=== PATIENT | female | born 1985 | race Caucasian/White ===

== ENCOUNTER → 2019-01-12 11:13 | Outpatient (CLI) | payer MEDICAID, SELFPAY ==
--- NOTE | 2019-01-12 11:19 | XR_ITS ---
PROCEDURE: XR MULTIPLE SPINE 4-5V CLINICAL INDICATION: THORACIC SPINE PAIN COMPARISON: No exams were available for comparison FINDINGS: AP and lateral and swimmer's view of the thoracic spine show all thoracic vertebrae to be intact. All pedicles are intact. There is no paraspinal mass. There is normal curvature and alignment of the lumbar spine. All lumbar vertebrae appear intact. There is no pars defect. Disc spaces are well maintained throughout. The SI joints are normal. IMPRESSION: Grossly negative thoracic and lumbar spine Dictated by: Dr. Bobo Avalos MD 01/12/2019 11:[address] Bobo Avalos MD in [place] 01/12/2019 11:53
== END ==
PROVIDERS: PCP Nurse Practitioner; Visit Provider Nurse Practitioner
DX: M54.6 Pain in thoracic spine (principal)
CPT/HCPCS: 72083

== ENCOUNTER → 2020-06-27 15:37 | Outpatient (CLI) | payer MEDICAID, SELFPAY ==
[2020-07-01 02:16] LABS: Neisseria gonorrhoeae, NAA Negative (Negative)
== END ==
PROVIDERS: Visit Provider Obstetrics & Gynecology
DX: N89.8 Other specified noninflammatory disorders of vagina (principal); N76.0 Acute vaginitis; B96.89 Other specified bacterial agents as the cause of diseases classified elsewhere
CPT/HCPCS: 87491; 87591

== ENCOUNTER 2020-11-30 17:21 | Emergency (ER) | payer MEDICAID, SELFPAY ==
[2020-11-30 19:59] VITALS: BP 137/82; PULSE 86; RESP 14; TEMP 36.9; O2SAT 97; BMI 39.6
[2020-11-30 20:20] LABS: Apearance,Urine Turbid (Clear); Glucose,Urine (UA) 1+ (Negative); PH,Urine 5.5 (5.0-8.5); Protein,Urine Trace (Negative); Specific Gravity, Urine > 1.030 (1.005-1.030)
--- NOTE | 2020-11-30 20:20 | HMH.EDUTC ---
[facility] [place] Clinical Impression: Bacterial vaginitis, Vaginal candidiasis UTI (urinary tract infection) Qualifiers: Urinary tract infection type: acute cystitis Hematuria presence: with hematuria Qualified Code(s): N30.01 - Acute cystitis with hematuria Disposition: Home, Self-Care Condition on Discharge: Good Instructions: DI for Urinary Tract Infection (UTI) Additional Instructions: Follow up with Lala Tuesday to get urine culture and STD results Prescriptions: Ciprofloxacin HCl [Cipro 500mg Tab] 500 mg PO BID 5 Days #10 tab Transmission Status: Pending to [facility] Fluconazole [Diflucan 150mg tab] 150 mg PO DAILY 3 Days #3 tab Transmission Status: Pending to [facility] metroNIDAZOLE [Flagyl 500mg Tablet] 500 mg PO TID 10 Days #30 tab Transmission Status: Pending to [facility] Referrals: Mary Richardson APRN [Primary Care Provider] - Time of Disposition: 21:06 Medical Decision Making - Salvador Inquiry Pt receiving controlled substance: No Vital Signs: 11/30/20 19:59 Temperature 98.5 F Temperature Source Oral Pulse Rate [Left] 86 Respiratory Rate 14 Blood Pressure [Right Arm] 137/82 Blood Pressure Mean [Right Arm] 100 02 Sat by Pulse Oximetry 97 - Lab Data Lab results reviewed: Yes: I reviewed the patient's lab results. Lab Results 11/30/20 20:04: Urine Appearance Turbid, Urine pH 5.5, Ur Specific [place] > 1.030 H, Urine Protein Trace, Urine Glucose (UA) 1+, Urine Ketones Negative, Urine Blood 1+, Urine Nitrate Negative, Urine Bilirubin Negative, Urine Urobilinogen 0.2, Ur Leukocyte Esterase 3+ A Orders (Tests/Meds): ORDERS Category Date Time Status Urine Culture Stat Micro 11/30/20 20:15 [place] [facility] [place] - General Stated complaint: possible UTI Time Seen by Provider: 11/30/20 20:20 Mode of Arrival: Ambulatory Source of Information: Patient Limitations: No Limitations Description of Symptoms (Recalled from Triage Doc. by RN): pt states her vagina is inflammed . pt had unprotected sex last week with a new partner. pt is having itching and pain in her vagina. she is unsure if it could be a uti or sti. pt c/o nausea, DIA, and back ache. HEENT Symptoms (Recalled from RN notes): Yes (DIA) Resp Symptoms (Recalled from RN notes): No Skin Symptoms (Recalled from RN notes): No MS Symptoms (Recalled from RN notes): Yes (back ache) Functional Status (Recalled from RN notes): na - History of Present Illness Provider Complaint: Patient has pelvic pain, back pain, headache, nausea. No fever. She states her vagina is itchy, swollen and painful. No discharge. No odor. She had unprotected sexual intercourse last week and also changed her detergent. Onset (ago): day(s) (2) Location: genitals Radiation: back Quality: burning Consistency: constant Relieving factors: none Exacerbating factors: none Associated symptoms: denies other symptoms Treatments prior to arrival: none - Related Data Home Medications Medication Instructions Recorded Confirmed atorvastatin 40 mg tablet 40 mg PO DAILY tab 01/08/20 blood sugar diagnostic See Rx Instructions .ROUTE 01/08/20 .MEDSUPPLY #10 each esomeprazole magnesium 20 mg mg PO 01/08/20 tablet,delayed release glimepiride 4 mg tablet 4 mg PO BID tab 01/08/20 insulin glargine 100 unit/mL (3 unit SQ 01/08/20 mL) subcutaneous pen metformin 1,000 mg tablet 500 mg PO BID tab 01/08/20 sumatriptan succinate 100 mg tablet mg PO 01/08/20 etonogestrel 68 mg subdermal SUBDERMAL 06/27/20 implant sertraline 100 mg tablet 100 mg PO DAILY 06/27/20 Previous Rx's Medication Instructions Recorded metronidazole 500 mg tablet 500 mg PO BID 5 Days #10 tab 06/27/20 Ciprofloxacin HCl [Cipro 500mg 500 mg PO BID 5 Days #10 tab 11/30/20 Tab] Fluconazole [Diflucan 150mg tab] 150 mg PO DAILY 3 Days #3 tab 11/30/20 metroNIDAZOLE [Flagyl 500mg 500 mg PO TID 10 Days #30 tab 0
[2020-11-30 20:21] LABS: Bilirubin,Urine Negative (Negative); Blood, Urine 1+ (Negative); Ketones,Urine Negative (Negative); UTC Leukocyte Esterase,Urine 3+ (Negative); UTC Nitrate,Urine Negative (Negative); Urobilinogen,Urine 0.2 EU/dl (0.2)
[2020-11-30 21:11] VITALS: BP 137/82; PULSE 86; RESP 16; TEMP 36.6
[2020-12-02 21:30] LABS: Neisseria gonorrhoeae, NAA Negative (Negative)
== END 2020-11-30 21:17 | disposition home or self-care (01) ==
PROVIDERS: Emergency Provider Physician Assistant; PCP Nurse Practitioner
DX: N30.01 Acute cystitis with hematuria (principal); N76.0 Acute vaginitis; B37.3 Candidiasis of vulva and vagina
CPT/HCPCS: 81003; 87086; 87186; 87210; 87491; 87591; 99203; G0463

== ENCOUNTER → 2020-12-26 17:05 | Outpatient (CLI) | payer MEDICAID, SELFPAY | PROVIDERS: PCP Nurse Practitioner; Visit Provider Nurse Practitioner | DX: Z20.822 Contact with and (suspected) exposure to COVID-19 (principal) | CPT/HCPCS: C9803; U0003; U0005 ==

== ENCOUNTER → 2022-08-09 10:43 | Outpatient (CLI) | payer MEDICAID, SELFPAY ==
[2022-08-10 12:07] LABS: HIV Screen 4th Generation wRfx Non Reactive (Non Reactive)
[2022-08-10 12:12] LABS: Rapid Plasma Reagin Ab Titer Non Reactive (NonRea<1:1)
[2022-08-10 14:23] LABS: HBsAg Screen Negative (Negative); Hep A Ab, IGM Negative (Negative); Hep B Core Ab, IgM Indeterminate (Negative)
== END ==
PROVIDERS: PCP Nurse Practitioner Family; Visit Provider Obstetrics & Gynecology
DX: Z11.3 Encounter for screening for infections with a predominantly sexual mode of transmission (principal); Z11.4 Encounter for screening for human immunodeficiency virus [HIV]
CPT/HCPCS: 36415; 80074; 86593; 86703; G0432

== ENCOUNTER 2025-01-23 12:52 | Emergency (ER) | payer MEDICAID, SELFPAY ==
[2025-01-23 12:55] VITALS: BP 126/71; PULSE 111; RESP 18; TEMP 36.9; O2SAT 100; BMI 27.3
--- NOTE | 2025-01-23 13:12 | CT_ITS ---
FINAL REPORT TECHNIQUE: IV contrast enhanced exam This study was performed with techniques to keep radiation doses as low as reasonably achievable, (ALARA). Individualized dose reduction techniques using automated exposure control or adjustment of mA and/or kV according to the patient''s size were employed. CLINICAL HISTORY: Abdominal pain, nausea COMPARISON: None FINDINGS: Abdomen: No acute density is seen within the lung bases. There is hepatosplenomegaly with the spleen measuring up to 17.8 cm. The gallbladder is unremarkable. The remaining solid abdominal organs are unremarkable. No bowel obstruction is present. There is no free air. No fluid collection is seen. There is mild nonspecific central mesenteric adenopathy. There is an excessive number of small lymph nodes measuring up to 7 mm. Mild adenopathy in the left para-aortic retroperitoneum measuring up to 11 mm. Pelvis: The appendix is normal. No bowel wall thickening is present. The uterus and ovaries are unremarkable. The urinary bladder is mildly distended. There is no free fluid. No pelvic mass is seen. IMPRESSION: No bowel obstruction or acute findings. Splenomegaly with mild mesenteric adenopathy. Lymphoproliferative disorder is not excluded. Consider CT follow-up in 2-3 months. Reviewed, Interpreted and Dictated by Luciana Berman MD Transcribed by Karie Lugo Authenticated and [facility]
--- NOTE | 2025-01-23 13:15 | ED_ITS ---
<Statement entered by Garret Alston MD - 01/23/25 17:46> I was consulted by the YAHAIRA, and we discussed the complexity of the problems being addressed. I approve the treatment and management plan for this patient's care in the emergency department, thus performing a substantive portion of the medical decision making. Garret Alston MD Discharge Plan Disposition Patient Disposition: Home, Self-Care Condition: Good Prescriptions Prescriptions: New ondansetron 4 mg tablet,disintegrating 4 mg PO Q6H PRN (Reason: nausea and vomiting) Qty: 10 0RF No Action Nexplanon 68 mg implant SUBDERMAL nystatin 100,000 unit/gram powder 1 applic topical TID Qty: 30 0RF metronidazole 500 mg tablet 2,000 mg PO ONCE Qty: 4 0RF azithromycin 500 mg tablet 500 mg PO ONCE 7 Days Qty: 7 0RF metronidazole 500 mg tablet 500 mg PO BID 5 Days Qty: 10 0RF Referrals Follow up/Referrals: Delmis Moran APRN [Primary Care Provider, Medical] - See instructions Chapincito Noonan II, MD [Staff Physician, Gastroenterology] - See instructions Activity Restrictions/Add. Instructions Additional Instructions/Restrictions: Please return to the emergency department with any worsening signs or symptoms. Please use your antinausea medicine as needed. Please follow-up with your PCP and GI doctor in the upcoming weeks. Could consider getting repeat CT scan of your abdomen in 2 to 3 months. Clinical Impressions Clinical Impression: Abdominal pain Instructions Patient Instructions: DI for Acute Abdominal Pain, DI for Mesenteric Adenitis in Adults Print Language Print Language: Urdu Discharge ED Provider: Garret Alston General Adult HPI General Chief complaint: Abdominal Pain Stated complaint: GI issues-abnormal xray Time Seen by Provider: 01/23/25 13:04 Mode of Arrival: Ambulatory Source of Information: Patient Description of Symptoms (Recalled from ER Triage Doc. by RN): Pt was sent for evaluation by PCP for concern of a bowel obstruction. Last BM was 2 hours ago but patient reports it was a liquid movement. Pt states she has abdominal pain that she has had since tuesday. Pt reports she is no longer passing gas. History of Present Illness HPI narrative: 39-year-old female presents emergency department at the request of her PCP, for concerns of a bowel obstruction , patient states that she went to her PCPs office today for routine follow-up, discussed that she had been having abdominal pain for the last 4 days, as well as some nausea, she had what sounds like abdominal x-rays performed which showed concern for bowel obstruction and was instructed to come to the emergency department for further evaluation. Patient denies any vomiting, denies any fever chills chest pain shortness of breath, last bowel movement was 2 hours ago, patient denies any hematuria melena hematochezia or hematemesis, no urinary type symptomatology, patient is a current everyday smoker (vapes), denies any alcohol use, admits to occasional marijuana use, other past medical history is consistent with T2DM, GERD, IBS, hyperlipidemia, JIGNA/MDD, bipolar disorder, gastroparesis. Initial triage vitals noted for tachycardia otherwise unremarkable. Please note that above description of symptoms, in this electronic medical record under categorization of recalled from ER triage doctor by RN are reflective of an initial nursing assessment, however, is not reflective of my full history and physical exam that was personally taken and clarified. Consequentially, this preceding description of symptoms, which may include the patient's categorized chief complaint in the EMR, do not reflect my personal clinical impression, and the ultimate description of history of present illness and patient stated complaints should be deferred to this section of the note. Unless stated otherwise or congruent with this section of the note, additional signs, symptoms, or incongruence should be interpreted as inaccurate with my clinical impression. Onset (ago): day(s) Related Data Home Medications ?Medication ?Instructions ?Recorded ?Confirmed etonogestrel 68 mg subdermal subdermal 06/27/20 implant (Nexplanon) Previous Rx's ?Medication ?Instructions ?Recorded azithromycin 500 mg tablet 500 mg PO ONCE 7 days #7 ta bs 08/09/22 metronidazole 500 mg tablet 2,000 mg (4 x 500 mg) PO O NCE #4 08/09/22 tabs nystatin 100,000 unit/gram topical 1 applic topical TI D #30 grams 08/09/22 powder metronidazole 500 mg tablet 500 mg PO BID 5 days #10 t abs 08/16/22 ondansetron 4 mg disintegrating 4 mg PO Q6H PRN nausea and 01/23/25 tablet vomiting #10 tabs Allergies Allergy/AdvReac Type Severity Reaction Status Date / Time latex (LATEX) Allergy Mild Verified 08/09/22 09:57 povidone-iodine (From Allergy Mild rash Verified 08/09/22 09:57 Betadine) soap (From Betadine) Allergy Mild rash Verified 08/09/22 09:57 lamotrigine (From LAMICTAL) Allergy Unknown Verified 08/09/22 09:57 [facility] Disclaimer: The information contained in this section may have been updated after the patient was seen, as this information can be updated by other users. Medical History Presence of subdermal contraceptive implant Surgical History (Updated 08/09/22 @ 10:02 by HELEN Jacinto) History of placement of ear tubes History of tonsillectomy and adenoidectomy Hx of removal of cyst History of ankle surgery History of salpingectomy Family History (Updated 08/09/22 @ 10:02 by HELEN Jacnito) Other Cancer FHx: mental illness Social History (Updated 08/09/22 @ 10:02 by HELEN Jacinto) Smoking Status: Current every day smoker tobacco type: cigarettes alcohol intake: never substance use type: marijuana current occupational status: employed Travel in the last 8 weeks?: None Have you lived/traveled outside US in past 30 days?: No Contact w/someone who lives/traveled outside US past 30 days?: No Exposure to someone with infectious disease in past 14 days?: No Do you have a fever (greater than 100.4 F or 38 C)?: No Have you tested positive for COVID-19?: No Exposed to someone with COVID-19 in past 14 days?: No Do you have a sore throat?: No Do you have a cough?: No Do you have any weakness?: No Do you have any diarrhea?: No Are you experiencing any unusual bleeding?: No Do you have any muscle aches/pain?: No Do you have any abdominal pain?: No Are you experiencing loss of taste or smell?: No Other Medical History Have you received the Pneumonia Vaccine: No ROS Obtained: Yes All systems reviewed & no additional complaints except as documented Physical Exam General General appearance: alert and in no apparent distress Head Head exam: atraumatic and normocephalic Eye Eye exam: Present PERRL and EOMI ENT ENT exam: Present mucous membranes moist Neck Neck exam: Present normal inspection Chest Chest inspection: Present normal inspection and symmetric chest wall rise Respiratory Respiratory exam: Present normal lung sounds bilaterally; Absent respiratory distress Cardiovascular Cardiovascular exam: Present normal rhythm and tachycardia Abdominal Exam Abdominal exam: Present soft; Absent tenderness, guarding, rebound or rigidity Extremities Exam Extremities exam: Present normal inspection Neurological Exam Neurological exam: Present alert and oriented X3 Psychiatric Psychiatric exam: Present normal affect Skin Skin exam: Present warm and dry Medical Decision Making Medical Records Medical records reviewed: Yes I reviewed the patient's medical records. Screening: Per USPSTF and CDC recommendations, given the prevalence of disease in our region, it is our hospital?s policy to screen for HIV and viral Hepatitis for all patients aged 18 and over and those with ongoing risk factors. [place] Inquiry Pt receiving controlled substance: Yes Salvador was queried for this patient: No Reason not queried -: Emergent pt cond-no time Risks and benefits of using a controlled substance: were discussed with pt by me Vital Signs: 01/23/25 12:55 01/23/25 14:00 01/23/25 14:30 Temperature 98.5 F Temperature Source Oral Pulse Rate 98 H 90 Pulse Rate [Right] 111 H Respiratory Rate 18 Blood Pressure 102/76 L 103/61 L Blood Pressure [Right Arm] 126/71 Blood Pressure Mean [Right Arm] 89 Blood Pressure Source [Right Arm] Automatic Cuff Blood Pressure Position [Right Arm] Sitting 02 Sat by Pulse Oximetry 100 96 97 Oxygen Delivery Method Room Air Room Air 01/23/25 15:00 Temperature Temperature Source Pulse Rate 91 H Pulse Rate [Right] Respiratory Rate Blood Pressure 106/58 L Blood Pressure [Right Arm] Blood Pressure Mean [Right Arm] Blood Pressure Source [Right Arm] Blood Pressure Position [Right Arm] 02 Sat by Pulse Oximetry 95 Oxygen Delivery Method Room Air Lab Data Lab results reviewed: Yes I reviewed the patient's lab results. Lab Results 01/23/25 13:38: WBC 12.4 H, RBC 5.12, Hgb 14.7, Hct 42.7, MCV 83.4, MCH 28.7, MCHC 34.4, RDW 13.6, Plt Count 288, MPV 9.7, Neut % (Auto) 63.4, Lymph % (Auto) 29.5, [place] % (Auto) 5.3, Eos % (Auto) 0.9, Baso % (Auto) 0.6, Neut # (Auto) 7.9 H, Lymph # (Auto) 3.7, [place] # (Auto) 0.7, Eos # (Auto) 0.1, Baso # (Auto) 0.1, Sodium 138, Potassium 4.8, Chloride 101, Carbon Dioxide 24, Anion Gap 17.8 H, BUN 17, Creatinine 0.40 L, Estimated Creat Clear 204, Estimated GFR 176, Est GFR ( Amer) 213, Glucose 134 H, Lactate 1.2, Calcium 9.5, Total Bilirubin 1.0, AST 52 H, ALT 25, Alkaline Phosphatase 72, Total Protein 7.7, Albumin 4.7, Globulin 3.0, Albumin/Globulin Ratio 1.6, Lipase 114, Serum HCG, Qual Negative 01/23/25 15:03: Urine Color Yellow, Urine Appearance Sl cloudy, Urine pH 5.5, Ur Specific [place] 1.010, Urine Protein Negative, Urine Glucose (UA) 3+, Urine Ketones Trace, Urine Blood Negative, Urine Nitrate Negative, Urine Bilirubin Negative, Urine Urobilinogen 0.2, Ur Leukocyte Esterase Negative, Urine RBC Occasional, Urine WBC Occasional, Ur Squamous Epith Cells 3-5, Urine Bacteria Trace 01/23/25 13:38 01/23/25 13:38 Orders (Tests/Meds): ED MEDICATIONS Discontinued Medications Generic Name Dose Route Start Last Admin Trade Name Freq PRN Reason Stop Dose Admin Iopamidol 75 ml 01/23/25 14:30 01/23/25 14:32 Iopamidol-370 (76%);100ml Bottle IV 01/23/25 14:31 75 ml ONCE ONE Administration Morphine Sulfate 2 mg 01/23/25 13:14 01/23/25 13:34 Morphine 2mg/Ml Syringe IV 01/23/25 13:15 2 mg ONCE ONE Administration Ondansetron HCl 4 mg 01/23/25 13:13 01/23/25 13:34 Ondansetron 4mg/2ml Vial IV 01/23/25 13:14 4 mg ONCE ONE Administration Sodium Chloride 10 ml 01/23/25 14:30 01/23/25 14:32 Sodium Chloride 0.9% 10ml Syr (Rad Only) IV 01/23/25 14:31 10 ml ONCE ONE Administration ORDERS Category Date Time Status CT abdomen pelvis w con Stat Cat Scan 01/23/25 13:12 Completed Complete Blood Count Auto Diff Stat Lab 01/23/25 13:38 Completed Comprehensive Metabolic Panel Stat Lab 01/23/25 13:38 Completed HCG Qualitative, Serum Stat Lab 01/23/25 13:38 Completed Lactic Acid Stat Lab 01/23/25 13:38 Completed Lipase Stat Lab 01/23/25 13:38 Completed Urinalysis and Microscopic Stat Lab 01/23/25 15:03 Completed Medical Decision Narrative: 39-year-old female presents the emergency department at the request of PCP for abdominal pain nausea for the last 4 days, is concern for bowel obstruction on abdominal x-rays performed as outpatient, differential diagnose include but not limited to, constipation, bowel obstruction, ileus, pseudo colonic obstruction, colitis, ileitis, gastroenteritis among others I discussed this patient's case with the attending physician Dr. Alston Will obtain basic laboratory studies, lactic acid lipase UA, hCG serum qualitative, CT pelvis with contrast, give 2 mg IM morphine for pain and 4 mg IV Zofran for nausea. CBC noted for mild leukocytosis 12.4 otherwise unremarkable CMP is notable for minimal AST elevation at 52 otherwise unremarkable. hCG serum qualitative negative Urinalysis is unremarkable with the exception of 3+ glucose urea patient has known T2DM. I reviewed the patient's CT and pelvis with contrast along the corresponding radiologic report, no bowel obstruction or acute findings, splenomegaly with mild mesenteric adenopathy, lymphoproliferative disorder is not excluded, consider CT follow-up in 2 to 3 months. I discussed the results with the patient the bedside patient voiced understanding and agreement with the current treatment plan/discharge plan. Will prescribe the 4 mg p.o. sublingual Zofran as needed for symptomatic relief. Patient was given strict ED return precautions, recommend follow-up with GI doctor and PCP in the upcoming days/weeks, recommend follow-up CT scan in the next 2 to 3 months. Patient once again voiced understanding Critical Care Critical Care Time Critical Care Time: No
[2025-01-23] MEDS: MORPHINE 2MG/ML SYRINGE 2 MG IV (13:34)
[2025-01-23] MEDS: ONDANSETRON 4MG/2ML VIAL 4 MG IV (13:34)
[2025-01-23 13:47] LABS: Hematocrit 42.7 % (37.0-47.0); Hemoglobin 14.7 g/dL (12.2-16.2); Immature Granulocytes % 0.3 %; Mean Corpuscular HGB Conc 34.4 g/dL (31.8-35.4); Mean Corpuscular Hemoglobin 28.7 pg (27.0-31.2); Mean Corpuscular Volume 83.4 fl (81-99); Nucleated Red Blood Cells % 0 %; Platelet Count 288 K/mm3 (142-424); Red Blood Count 5.12 M/mm3 (4.20-5.40); Red Cell Distribution Width-SD 41.6 fL; White Blood Count 12.4 K/mm3 (4.8-10.8)
--- OUTSIDE RECORDS SUMMARY | 2025-01-23 13:56 | XMS_ITS | Clinical Summary ---
Author Organization [facility] Address [address] [place] [address] Care Team Providers Care Director Data Analytics Name Role Phone DeanDelmis Romi GALE Primary Care Provider [phone] Allergies Active Allergy Reactions Criticality Noted Date Comments Lamotrigine Rash Low 09/17/2015 Latex 09/17/2015 Has not had testing. Medications Vit w/Fe-Methylfol- FA (PNV PO) Take by mouth daily. Active ranitidine (ZANTAC) 150 MG tablet Take 150 mg by mouth daily. Active sertraline (ZOLOFT) 50 MG tablet Take 50 mg by mouth daily. Active busPIRone (BUSPAR) 15 MG tablet Take 15 mg by mouth 2 (two) times a day. Active insulin glargine (LANTUS) 100 UNIT/ML injection Inject 26 Units under the skin every night. Active glucose blood test strip Use as instructed 200 each 1 6 Active Lancets (ACCU-CHEK SOFT TOUCH) lancets For glucose testing qid and prn 200 each 1 6 Active HUMALOG KWIKPEN 100 UNIT/ML solution pen-injector INJ 1 U/10 CARB 3 TIMES ADAY W/ INCREASE 1 U/30 CARBS CORRECTION BS>120& DECREASE 1 U/10 WHEN BS<70 1 6 Active B-D ULTRAFINE III SHORT PEN 31G X 8 MM misc USE DIRECTED 4 TIMES A DAY NEEDED 1 6 Active Active Problems Problem Noted Date Diagnosed Date Type 2 diabetes mellitus aff ecting in third trimester, antepartum 10/16/2015 Obesity affecting in third trimester, antepartum 10/16/2015 Diabetes in undelivered 10/09/2015 Immunizations Immunization Administration Dates Next Due FluMist 2-49yrs 04/24/2015 Social History Tobacco Use Types Packs/Day Years Used Date Smoking Tobacco: Every Day Cigarettes Tobacco Cessation:Ready to Q uit: No Alcohol Use Standard Drinks/Week Comments No 0 (1 standard drink = 0.6 oz pur e alcohol) Abuse Screen Answer Date Recorded Unsafe at Home or Work/School Not on file Feels Threatened by Someone? Not on file 02/2023 Does Anyone Keep You from Co ntacting Others or Doint Things Outside the Home? Not on file 01/12/2023 Physical Sign of Abuse Present Not on file 1 Housing Stability Answer Date Recorded Current Living Arrangements Not on file 01/02 Potentially Unsafe Housing Conditions Not on ramona e 01/12/2023 Family and Community Support Answer Kamlesh e Recorded Help with Day-to-Day Activities Not on file 01/12/2023 Lonely or Isolated Not on file 01/12/2023 Employment Answer Date Recorded Do you want help finding or keeping work or a herbert b? Not on file 01/12/2023 Disabilities Answer Date Recorded Concentrating, Remembering, or Making Decisions Difficulty Not on file 01/12/2023 Doing Errands Independently Difficulty Not on fi le 01/12/2023 Education Answer Date Recorded Help with school or training? Not on file Preferred Language Not on file 01/12/2023 Comments No Sex and Gender Information Value Date Recorded Sex Assigned at Not on file Legal Sex Female 10:48 AM EST Gender Identity Not on file Sexual Orientation Not on file Last Filed Vital Signs Vital Sign Reading Time Taken Comments Blood Pressure 122/80 10/16/2015 1:45 PM EDT Pulse - - Temperature - - Respiratory Rate - - Oxygen Saturation - - Inhaled Oxygen Concentration - - Weight 122 kg (268 lb) 10/16/2015 1:38 PM EDT Height 161.3 cm (5' 3.5 ) 09/22/2015 11:16 AM ED T Body Mass Index 46.73 09/22/2015 11:16 AM EDT Plan of Treatment Health Maintenance Due Date Last Done Comments Annual Gynecologic Pelvic and Breast Exam 1983 DIABETIC EYE EXAM 12/29/1993 DIABETIC FOOT EXAM 12/29/1993 URINE MICROALBUMIN-CREATININE RATIO (uACR) 12/29/1993 Hepatitis B (1 of 3 - 19+ 3-dose series) 12/29/2002 Pneumococcal Vaccine 0-49 (1 of 2 - PCV) 12/29/2002 TDAP/TD VACCINES (1 - Tdap) 12/29/2002 PAP SMEAR 12/29/2004 MAMMOGRAM 2023 ANNUAL PHYSICAL 04/10/2024 HEMOGLOBIN A1C 04/10/2024 HEPATITIS C SCREENING 04/10/2024 INFLUENZA VACCINE 11/02/2024 04/24/2015 Insurance [employer] Care Teams Director Data Analytics Relationship Specialty Start Date End Date Delmis Moran APRN [address] [place] [address] PCP - General Family Medicine 04/05/24
--- OUTSIDE RECORDS SUMMARY | 2025-01-23 13:56 | XMS_ITS | Clinical Summary ---
Author Organization [facility] Address [address] [place] [address] Phone Care Team Providers Care Director Of Managed Services Name Role Phone Unavailable Primary Care Provider Unavailabl e Family History Medical History Relation Name Comments Breast Cancer Paternal Aunt Relation Name Status Comments Paternal Aunt Social History Tobacco Use Types Packs/Day Years Used Date Smoking Tobacco: Never Assessed Comments No Sex and Gender Information Value Date Recorded Sex Assigned at Not on file Legal Sex Female 9:15 AM EST Gender Identity Not on file Sexual Orientation Not on file Obstetrics History Para Term AB IAB SAB Ectopic Multiple Livin g Live Births 2 Last Filed Vital Signs Vital Sign Reading Time Taken Comments Blood Pressure - - Pulse - - Temperature - - Respiratory Rate - - Oxygen Saturation - - Inhaled Oxygen Concentration - - Weight 74.8 kg (165 lb) 05/07/2024 11:16 AM EST Height 160 cm (5' 3 ) 05/07/2024 11:16 AM EST Body Mass Index 29.23 05/07/2024 11:16 AM EST Plan of Treatment Health Maintenance Due Date Last Done Comments Annual Wellness Exam 12/29/1986 DTaP/TDaP/Td (1 - Tdap) 12/29/2002 Hepatitis B Vaccine (1 of 3 - 19+ 3-dose series) 12/29/2002 Cervical Cancer Screening 12/29/2004 Pap Smear 12/29/2004 HPV/Pap Cotest 12/29/2013 COVID-19 Vaccine ( - 2024-2 6 season) 2024 Influenza Vaccine (#1) 2024 04/24/2015 Breast Cancer Screening 05/07/2026 05/07/2024 Meningococcal B Vaccine Aged Out No l onger eligible based on patient's age to complete this topic Pneumococcal Vaccine 0-49 Aged Out No longer eligible based on patient's age to complete this topic Procedures Procedure Name Priority Date/Time Associated Diagnosis Comments MM MAMMO DIGITAL VICKIE SCREEN BILAT Routine 05/07/2024 11:10 AM EST Visit for screening mammogram from Last 3 Months or Most Recently Relevant to Health Maintenance Results * MM MAMMO DIGITAL VICKIE SCREEN BILAT (05/07/2024 11:10 AM EST) Anatomical Region Laterality Modality Breast Bilateral Mammography 05/07/2024 11:1 0 AM EST Impressions 05/09/2024 7:45 AM EST Negative ([id number]) RECOMMENDATION: Routine Screening Mammogram in 1 Year Bilateral No additional recommendation No additional laterality COMMENTS: Narrative 05/09/2024 7:45 AM EST EXAM: MM MAMMO DIGITAL VICKIE SCREEN BILAT EXAM DATE: 05/07/2024 11:10 AM INDICATION: Z12.31-Encounter for screening mammogram for malignant neoplasm of [id number] COMPARISON STUDIES: Compared with prior studies the most recent being No comparison mammographic studies. TISSUE DENSITY: There are scattered areas of fibroglandular density. FINDINGS: No mammographic evidence of malignancy. Procedure Note Alfonso Gomez DO - 05/09/2024 EXAM: MM MAMMO DIGITAL VICKIE SCREEN BILAT EXAM DATE: 05/07/2024 11:10 AM INDICATION: Z12.31-Encounter for screening mammogram for malignantneoplasm of [id number] COMPARISON STUDIES: Compared with prior studies the most recent being No comparison mammographic studies. TISSUE DENSITY: There are scattered areas of fibroglandular density. FINDINGS: No mammographic evidence of malignancy. IMPRESSION: Negative ([id number]) RECOMMENDATION: Routine Screening Mammogram in 1 Year Bilateral No additional recommendation No additional laterality COMMENTS: Delmis Moran NP IMG MAMMOGRAPHY ORDERABLES Fin al Result from Last 3 Months or Most Recently Relevant to Health Maintenance Insurance [facility] [id number] MDR
--- OUTSIDE RECORDS SUMMARY | 2025-01-23 13:56 | XMS_ITS | Clinical Summary ---
Author Organization [facility] Address [address] [place] [address] Care Team Providers Care Structural Technician Name Role Phone Unavailable Primary Care Provider Unavailabl e Immunizations Immunization Administration Dates Next Due Influenza, seasonal, injectable, preservative fr ee 03/06/2012 Tdap 03/06/2012 Social History Tobacco Use Types Packs/Day Years Used Date Smoking Tobacco: Never Assessed Comments Unknown Sex and Gender Information Value Date Recorded Sex Assigned at Female 08/08/2024 1:25 PM EDT Legal Sex Female 8:46 PM EDT Gender Identity Female 08/08/2024 1:25 PM EDT Sexual Orientation Not on file Plan of Treatment Not on file Insurance [employer]
[2025-01-23 14:00] VITALS: BP 102/76; PULSE 98; O2SAT 96
[2025-01-23 14:06] LABS: Alanine Aminotransferase 25 U/L (12-78); Albumin Level 4.7 g/dl (3.5-5.0); Albumin/Globulin Ratio 1.6 (1.1-1.8); Alkaline Phosphatase 72 U/L (38-126); Anion Gap 17.8 mEq/L (5-15); Aspartate Amino Transferase 52 U/L (14-36); Bilirubin,Total 1.0 mg/dl (0.2-1.3); Blood Urea Nitrogen 17 mg/dl (7-17); Calcium 9.5 mg/dl (8.4-10.2); Carbon Dioxide 24 mmol/L (22.0-30.0); Chloride 101 mmol/L (98-107); Creatinine Clearance Estimated 204 mL/min (50-200); Creatinine,Serum 0.40 mg/dl (0.52-1.04); Estimated Glomerular Filt Rate 176 ml/min (>60); GFR (African American) 213 ML/MIN (>60); Globulin 3.0 g/dL (1.3-3.2); Glucose 134 mg/dl (74-100); Lipase 114 U/L (23-300); Potassium 4.8 mmoL/L (3.5-5.1); Sodium 138 mmol/L (136-145); Total Protein,Serum 7.7 g/dl (6.3-8.2)
[2025-01-23 14:30] VITALS: BP 103/61; PULSE 90; O2SAT 97
[2025-01-23] MEDS: IOPAMIDOL-370 (76%);100ML BOTTLE 75 ML IV (14:32)
[2025-01-23] MEDS: SODIUM CHLORIDE 0.9% 10ML SYR (RAD ONLY) 10 ML IV (14:32)
[2025-01-23 14:35] LABS: HCG Qualitative, Serum Negative (Negative)
[2025-01-23 15:00] VITALS: BP 106/58; PULSE 91; O2SAT 95
[2025-01-23 15:12] LABS: Microscopic, Urine URINE MICROSCOPIC (MICROSCOPIC)
[2025-01-23 15:13] LABS: Bilirubin,Urine Negative (Negative); Color,Urine YELLOW (Yellow); Glucose,Urine (UA) 3+ (Negative); Ketones,Urine TRACE (Negative); Leukocyte Esterase,Urine Negative (Negative); PH,Urine 5.5 (5.0-8.5); Protein,Urine Negative (Negative); Specific Gravity, Urine 1.010 (1.005-1.030); Urobilinogen,Urine 0.2 EU/dl (0.2)
[2025-01-23 15:20] LABS: Bacteria,Urine Trace /lpf; RBC,Urine Occasional #/hpf (0-3); WBC,Urine Occasional #/hpf (0-3)
[2025-01-23 15:40] VITALS: BP 113/75; PULSE 89; RESP 16; TEMP 36.6; O2SAT 98
== END 2025-01-23 15:43 | disposition home or self-care (01) ==
PROVIDERS: Physician Assistant; Emergency Provider Student in an Organized Health Care Education/Training Program; PCP Nurse Practitioner Family
DX: R10.9 Unspecified abdominal pain (principal); R11.0 Nausea; I88.0 Nonspecific mesenteric lymphadenitis; F17.210 Nicotine dependence, cigarettes, uncomplicated
CPT/HCPCS: 74177; 80053; 81001; 83605; 83690; 84703; 85025; 96374; 96375; 99284; J2270; J2405; Q9967